=== PATIENT | male | born 1945 | race Asian ===

== ENCOUNTER 2021-01-31 14:54 | Emergency (ER) | payer OTHER ==
[2021-01-31 15:04] VITALS: BMI 23.0
[2021-01-31] MEDS ORDERED: DIPHTH,PERTUSS(ACELL),TET 0.5 ML DISP.SYRIN IM ONE ×2 (15:38→15:49)
[2021-01-31] MEDS ORDERED: morphine CARPU-JECT 4 MG/1 ML DISP.SYRIN IVPUSH ONE ×3 (15:38→19:11)
[2021-01-31] MEDS ORDERED: SODIUM CHLORIDE 0.9% 500 ML INFUS.BAG IV ONE ×2 (15:44→16:37)
[2021-01-31] MEDS ORDERED: morphine SULFATE 4 MG/ML VIAL ONE ×3 (15:49→20:21)
[2021-01-31] MEDS ORDERED: LACTATED RINGERS SOLUTION 1000 ML INFUS.BAG IV ONE (16:01)
[2021-01-31] MEDS ORDERED: BACITRACIN/POLYMYXIN B SULFATE 15 GM TUBE TP ONE (16:44)
[2021-01-31] MEDS ORDERED: BACITRACIN 0.9 GM PACKET ONE ×2 (16:47→16:48)
[2021-01-31 20:09] VITALS: TEMP 98.6
[2021-02-01 01:16] VITALS: BP 126/75; PULSE 94
== END 2021-02-01 01:29 | disposition short-term general hospital (02) ==
LOC: JER 14:54
PROC: 3E033GC Introduction of Other Therapeutic Substance into Peripheral Vein, Percutaneous Approach (ICD-10-PCS; principal; 2021-01-31)
PROC: 3E0234Z Introduction of Serum, Toxoid and Vaccine into Muscle, Percutaneous Approach (ICD-10-PCS; principal; 2021-01-31)
DX: T22.231A Burn of second degree of right upper arm, initial encounter (principal); X03.0XXA Exposure to flames in controlled fire, not in building or structure, initial encounter
CPT/HCPCS: 90471; 90715; 96374; 96376; 99284-25; C9803; U0003; U0005

== ENCOUNTER 2023-03-17 10:48 | Emergency (ER) | payer BC, OTHER ==
[2023-03-17 10:55] VITALS: BP 127/96; PULSE 73; RESP 18; TEMP 97; BMI 24.4
[2023-03-17] MEDS ORDERED: SODIUM CHLORIDE 1,000 ML IV STA (13:08)
[2023-03-17] MEDS ORDERED: DEXAMETHASONE SOD PHOSPHATE 10 MG/1 ML VIAL IVPUSH ONE (13:09)
[2023-03-17] MEDS ORDERED: FAMOTIDINE 20 MG/50 ML IVPB 20 MG/50 ML MG IVPB ONE ×2 (13:13→13:39)
[2023-03-17] MEDS ORDERED: hydrOXYzine PAMOATE 25 MG CAPSULE (FP) PO ONE ×2 (13:16→13:39)
[2023-03-17] MEDS ORDERED: DEXAMETHASONE SOD PHOSPHATE 10 MG/1 ML VIAL ONE (13:39)
[2023-03-17 14:03] LABS: HEMATOCRIT 40.5 % (35.4-49); HEMOGLOBIN 13.5 GM/dL (11.7-16.9); MCH 32.4 pg (25.7-33.7); MCHC 33.3 g/dl (32.0-35.9); MEAN CELL VOLUME 97.1 fl (80-96); MEAN PLT VOLUME 7.8 fl (7.5-11.1); PLATELET COUNT 215 10^3/uL (134-434); RBC 4.17 M/mm3 (4.00-5.60); RDW 12.9 % (11.9-15.9); WHITE BLOOD COUNT 3.1 K/mm3 (4.0-10.0)
[2023-03-17 14:39] LABS: POTASSIUM 4.4 mmol/L (3.5-5.1)
[2023-03-17 14:40] LABS: CALCIUM 8.8 mg/dL (8.5-10.1)
[2023-03-17 14:41] LABS: ALBUMIN 3.5 g/dl (3.4-5.0)
[2023-03-17 14:44] LABS: CREATININE 0.8 mg/dL (0.55-1.3)
[2023-03-17 14:45] LABS: BILIRUBIN,TOTAL 0.5 mg/dL (0.2-1); TOT PROT 6.8 g/dl (6.4-8.2)
[2023-03-17 15:06] LABS: ANISOCYTOSIS 1+; MACROCYTOSIS 0; OVALOCYTE 1+
== END 2023-03-17 15:02 | disposition home or self-care (01) ==
LOC: JERFT 10:48 → JER 10:48 → JERFT 15:02
PROC: 3E033GC Introduction of Other Therapeutic Substance into Peripheral Vein, Percutaneous Approach (ICD-10-PCS; principal; 2023-03-17)
PROC: 3E033GC Introduction of Other Therapeutic Substance into Peripheral Vein, Percutaneous Approach (ICD-10-PCS; 2023-03-17)
PROC: 3E033GC Introduction of Other Therapeutic Substance into Peripheral Vein, Percutaneous Approach (ICD-10-PCS; 2023-03-17)
PROC: 3E0337Z Introduction of Electrolytic and Water Balance Substance into Peripheral Vein, Percutaneous Approach (ICD-10-PCS; 2023-03-17)
DX: R21 Rash and other nonspecific skin eruption (principal); L50.0 Allergic urticaria
CPT/HCPCS: 36415; 80053; 85025; 99284-25; J1100